=== PATIENT | female | born 1995 | race Caucasian/White ===

== ENCOUNTER → 2018-08-31 | Outpatient (REF) | payer BC ==
[~2018-08-31] MED LIST: BACT800T5 PO; NEXP1IMP SC
[2018-08-31 17:43] LABS: INFLUENZA A AMPLIFICATION NEGATIVE (NEGATIVE); INFLUENZA B AMPLIFICATION NEGATIVE (NEGATIVE)
== END ==
LOC: M LAB REF 16:41
PROVIDERS: ATTEND Physician Assistant
DX: J11.1 Influenza due to unidentified influenza virus with other respiratory manifestations (principal)

== ENCOUNTER 2018-09-03 05:27 | Emergency (ER) | payer BC ==
[~2018-09-03] VITALS: Ht 157.5 cm; Wt 43.6 kg
[2018-09-03] MEDS ORDERED: NEXP1IMP SC (05:33)
[2018-09-03] MEDS ORDERED: ACETAMINOPHEN 325 MG TAB PO ONE (06:30)
[2018-09-03] MEDS ORDERED: IBUPROFEN 800 MG TAB PO ONE (06:30)
[2018-09-03] MEDS ORDERED: BACT800T5 PO (06:49)
[2018-09-03 06:52] VITALS: BP 125/71
== END 2018-09-03 06:55 | disposition home or self-care (01) ==
LOC: M ED 05:27
DX: N30.90 Cystitis, unspecified without hematuria (principal); Z79.3 Long term (current) use of hormonal contraceptives

== ENCOUNTER 2021-09-19 19:00 | Inpatient (IN) | payer BC ==
[~2021-09-19] VITALS: Ht 157.5 cm; Wt 44.0 kg
[2021-09-19] MEDS ORDERED: TRI-1TAB PO (19:12)
[2021-09-20] MEDS ORDERED: VITATAB73 PO (08:12)
[2021-09-23 06:10] VITALS: BP 123/75
[2021-09-23] MEDS ORDERED: TRAZ-252 PO (12:54)
[2021-09-23] MEDS ORDERED: SERT50TA29 PO (12:54)
== END 2021-09-23 14:26 | disposition home or self-care (01) | DRG 751 ==
LOC: M ED 19:00 → M ED INP 09-20 14:51 → M PSY 09-20 17:58
PROVIDERS: ADMIT Psychiatry & Neurology Psychiatry; ATTEND Student in an Organized Health Care Education/Training Program
DX: F32.0 Major depressive disorder, single episode, mild (principal); G31.84 Mild cognitive impairment of uncertain or unknown etiology; R11.0 Nausea; Z87.820 Personal history of traumatic brain injury; Z79.899 Other long term (current) drug therapy; Z81.8 Family history of other mental and behavioral disorders

== ENCOUNTER → 2021-10-21 | Outpatient (CLI) | payer BC ==
[~2021-10-21] MED LIST changes: +SERT50TA29 PO; +TRAZ-252 PO; +TRI-1TAB PO; +VITATAB73 PO
== END ==
LOC: M ADAMS 08:14
PROVIDERS: ATTEND Family Medicine
DX: M54.2 Cervicalgia (principal); M54.89 Other dorsalgia

== ENCOUNTER → 2022-04-01 | Outpatient (CLI) | payer BC ==
[~2022-04-01] MED LIST changes: +ETON68IM SC; -NEXP1IMP SC
== END ==
LOC: M PLAIMG 10:56
PROVIDERS: ATTEND Physician Assistant
DX: R05.1 Acute cough (principal)